=== PATIENT | female | born 1950 | race Hispanic/Latino ===

== ENCOUNTER 2021-02-26 08:45 | Day surgery (SDC) | payer MEDICARE ==
[2021-02-23 16:04] LABS: BASOPHILS % (AUTO) 0.6 % (0.0-5.0); EOSINOPHILS % (AUTO) 1.3 % (0.0-8.0); HEMATOCRIT 43.2 % (36-48); LYMPHOCYTES % (AUTO) 34.7 % (21.0-51.0); MEAN CORPUSCULAR HEMOGLOBIN 30.9 pg (27.0-33.0); MEAN CORPUSCULAR HGB CONC 31.9 g/dL (32.0-36.0); MEAN CORPUSCULAR VOLUME 96.6 fL (79-99); MONOCYTES % (AUTO) 10.7 % (3.0-13.0); PLATELET COUNT (AUTO) 232 K/uL (130-400); RED BLOOD CELL COUNT(AUTO) 4.47 MIL/uL (4.00-5.50); RED CELL DISTRIBUTION WIDTH 13.2 % (11.0-15.5); WHITE BLOOD COUNT (AUTO) 10.6 K/uL (4.8-10.8)
[2021-02-23 16:16] LABS: CREATININE 0.7 mg/dL (0.5-1.5); POTASSIUM 4.3 mmol/L (3.5-5.1)
[2021-02-23 16:18] LABS: INR 1.03 (0.85-1.15); PROTHROMBIN TIME 11.2 SEC (9.6-11.6)
[2021-02-25 09:17] VITALS: BP 167/68
[2021-02-26] VITALS (14 sets, daily range): BP systolic 115–169; BP diastolic 61–84
[~2021-02-26] VITALS: Ht 154.9 cm; Wt 52.9 kg
[~2021-02-26 08:45] MED LIST: LEVO88TA72 PO; METO25TA6 PO; OMEP20CA12 PO; OXYB5TAB15 PO; PRED5TAB PO; SULF500T8 PO; TRAM-355 PO
[2021-02-26] MEDS ORDERED: IOHEXOL-350 50ML VIAL IV ONE (10:46)
[2021-02-26] MEDS ORDERED: PROPOFOL 10 MG/ML 20ML VIAL IV ONE (11:12)
[2021-02-26] MEDS ORDERED: FENTANYL CITRATE PF 50 MCG/1 ML 2ML VIAL ONE (11:12)
[2021-02-26] MEDS ORDERED: LIDOCAINE PF 100MG/5ML (2%) SYRINGE 5ML ONE (11:12)
[2021-02-26] MEDS ORDERED: SOLU-MEDROL 125MG VIAL ONE (11:14)
[2021-02-26] MEDS ORDERED: HYDROCORTISONE SOD SUCCINATE 100 MG/2 ML VIAL ONE (11:18)
[2021-02-26] MEDS ORDERED: CEFTRIAXONE 1G VIAL ONE (11:25)
[2021-02-26] MEDS ORDERED: MEPERIDINE-PF 25 MG/ML SYG ONE (13:03)
[2021-02-26] MEDS ORDERED: PHENAZOPYRIDINE HCL 200 MG TABLET ONE (14:12)
== END 2021-02-26 15:00 | disposition home or self-care (01) ==
LOC: DAH 08:45 → EDSEX 11:00 → DAH 15:00
PROVIDERS: ATTEND Urology
DX: N20.0 Calculus of kidney (principal); Z20.822 Contact with and (suspected) exposure to COVID-19; N12 Tubulo-interstitial nephritis, not specified as acute or chronic; I10 Essential (primary) hypertension; K21.9 Gastro-esophageal reflux disease without esophagitis; E03.9 Hypothyroidism, unspecified; M06.9 Rheumatoid arthritis, unspecified; Z79.01 Long term (current) use of anticoagulants; Z86.19 Personal history of other infectious and parasitic diseases
CPT/HCPCS: 36415 ×2; 52356; 74420; 80048; 82360; 85025; 85610; 87426; 93005; A4215; A4221; A4222; A4223; A4344; A4354; A4358; A4649; A4663; C1758; C1769; C2617; J0696; J1720; J2001; J2175; J2704; J3010; J7120; Q9967; J2930

== ENCOUNTER → 2023-12-18 | Outpatient (CLI) | payer MEDICARE ==
[~2023-12-18] MED LIST changes: -OXYB5TAB15 PO; +OXYB5TAB20 PO
== END | disposition home or self-care (01) ==
LOC: RAH 12:45
PROVIDERS: ATTEND Otolaryngology Plastic Surgery within the Head & Neck
DX: E04.2 Nontoxic multinodular goiter (principal)
CPT/HCPCS: 76536

== ENCOUNTER → 2024-05-13 | Outpatient (CLI) | payer MEDICARE ==
[~2024-05-13] MED LIST changes: -TRAM-355 PO; +TRAM-543 PO
--- NOTE | 2024-05-13 14:59 | HMCIMG ---
US THYROID/NECK HISTORY: Thyroid nodule COMPARISON: 12/18/2023 TECHNIQUE: Thyroid ultrasound study was performed. FINDINGS: Right thyroid lobe measures 2.3 x 0.7 x 0.6 cm. Left thyroid lobe measures 2 x 0.7 x 0.6 cm. Thyroid gland is heterogeneous. There are left lower pole thyroid nodules measuring 2 mm and 3 mm each unchanged. IMPRESSION: 1. Heterogeneous thyroid. Stable left lower pole thyroid nodules measuring 2 mm and 3 mm each unchanged.
== END | disposition home or self-care (01) ==
LOC: RAH 14:03
PROVIDERS: ATTEND Otolaryngology Plastic Surgery within the Head & Neck
DX: E04.2 Nontoxic multinodular goiter (principal)
CPT/HCPCS: 76536

== ENCOUNTER → 2024-08-30 | Outpatient (CLI) | payer MEDICARE, OTHER ==
[2024-08-30 14:09] LABS: CREATININE 0.8 mg/dL (0.5-1.0)
== END | disposition home or self-care (01) ==
LOC: LAB 13:04
PROVIDERS: ATTEND Otolaryngology Plastic Surgery within the Head & Neck
DX: J38.01 Paralysis of vocal cords and larynx, unilateral (principal)
CPT/HCPCS: 36415; 82565; 84520

== ENCOUNTER → 2024-09-04 | Outpatient (CLI) | payer MEDICARE, OTHER ==
[~2024-09-04] MED LIST changes: +IOHEXOL-350 50ML VIAL IV ONE
--- NOTE | 2024-09-04 14:31 | HMCIMG ---
CT MAXILLOFACIAL W/O CONTRAST HISTORY: Chronic sinusitis COMPARISON: None TECHNIQUE: Multiple sequential high-resolution axial images of the paranasal sinuses were obtained. Postprocessing sagittal and coronal reconstruction images were also obtained. Patient was not given contrast through intravenous route. FINDINGS: Nasal septum is grossly midline. There is no evidence of mucoperiosteal thickening involving the paranasal sinuses. The infundibula are patent bilaterally. No acute displaced fracture is seen. There is no evidence of air-fluid level in the paranasal sinuses. Parapharyngeal fat planes are preserved bilaterally. IMPRESSION: 1. No acute displaced fracture is seen. CT was performed with one or more following dose reduction techniques: automated exposure control, adjustment of the mA and kv according to patient's size, or use of a iterative reconstruction technique.
--- NOTE | 2024-09-04 16:49 | HMCIMG ---
CT NECK SOFT TISSUE W/WO CONTR HISTORY: Paralysis of vocal cord COMPARISON: None TECHNIQUE: Multiple sequential axial images of the soft tissue neck were obtained. Patient was given 50 cc of Omnipaque through intravenous route. FINDINGS: Visualized portion of brain parenchyma within the posterior fossa is within normal limits. Parapharyngeal fat planes are preserved bilaterally. Parotid glands and submandibular glands are grossly within normal limits. There are normal size cervical lymph nodes. The airway is patent. There are mild bilateral reticulonodular pulmonary infiltrates. IMPRESSION: 1. Mild bilateral reticulonodular pulmonary infiltrates. CT was performed with one or more following dose reduction techniques: automated exposure control, adjustment of the mA and kv according to patient's size, or use of a iterative reconstruction technique.
== END | disposition home or self-care (01) ==
LOC: RAH 12:42
PROVIDERS: ATTEND Otolaryngology Plastic Surgery within the Head & Neck
DX: J38.01 Paralysis of vocal cords and larynx, unilateral (principal); J32.8 Other chronic sinusitis; R05.9 Cough, unspecified; R91.8 Other nonspecific abnormal finding of lung field
CPT/HCPCS: 70486; 70492; Q9967